=== PATIENT | male | born 1990 | race Caucasian/White ===

== ENCOUNTER 2019-01-29 06:03 | Emergency (ER) | payer BC ==
[2019-01-29 06:39] VITALS: BMI 26.5
[2019-01-29] MEDS ORDERED: SODIUM CHLORIDE 1,000 ML IV STA (07:12)
[2019-01-29] MEDS ORDERED: IBUPROFEN 600 MG TABLET (FP) PO ONE ×2 (07:12→07:23)
[2019-01-29] MEDS ORDERED: ONDANSETRON 4 MG/2 ML VIAL IVPB ONE (07:15)
[2019-01-29] MEDS ORDERED: ONDANSETRON 4 MG/2 ML VIAL ONE (07:23)
--- NOTE | 2019-01-29 07:23 | PDOC ---
History of Present Illness - General Chief Complaint: Headache Stated Complaint: HEADACHE Time Seen by Provider: 01/29/19 06:57 History Source: Patient Exam Limitations: No Limitations - History of Present Illness Initial Comments: 01/29/19 07:19 Pt is a previously healthy 29yo M presenting to ED with complaints of REAL, nausea and fever x3 days. Pt states he was helping his friend move Tuesday and later that evening/night developed a headache located in the temples associated with nausea. He went home and felt he had a fever of up to 103. He states the headache is better in the morning but gets worse through out the day. He states he vomited once yesterday but thought it was due to something he ate. He took Advil for the headache which helped a little. Endorses dark urine and low appetite. He denies vision changes, cough, congestion, sore throat, abdominal pain, urinary symptoms, back pain, neck stiffness, rashes, numbness/tingling, injury, sick contacts, recent travel. Lives at home with his and daughter. PMD: PMH: none PSH: none Meds: none Allergies: nkda Past History - Past Medical History Allergies/Adverse Reactions: Allergies Allergy/AdvReac Type Severity Reaction Status Date / Time No Known Allergies Allergy Verified 01/29/19 06:36 Home Medications: Ambulatory Orders NK [No Known Home Medication] 01/29/19 - Suicide/Smoking/Psychosocial Hx Smoking History: Never smoked Have you smoked in the past 12 months: No Information on smoking cessation initiated: No Hx Alcohol Use: No Drug/Substance Use Hx: No Review of Systems - Review of Systems Constitutional: Yes: Fever, Loss of Appetite, Weakness. No: Chills, Malaise, Night Sweats, Unexplained wgt Loss HEENTM: No: Eye Pain, Blurred Vision, Nose Congestion, Throat Pain Respiratory: No: Cough, Shortness of Breath Cardiac (ROS): No: Chest Pain, Lightheadedness, Palpitations ABD/GI: Yes: Nausea. No: Constipated, Diarrhea, Vomiting, Abdominal cramping : No: Burning, Dysuria, Flank Pain Musculoskeletal: No: Back Pain, Joint Pain, Muscle Pain, Neck Pain Integumentary: No: Dryness, Erythema, Lesions, Lumps Neurological: Yes: Headache. No: Numbness, Paresthesia, Tingling, Tremors, Weakness, Dizziness *Physical Exam - Vital Signs Last Vital Signs Temp Pulse Resp BP Pulse Ox 99.1 F 101 H 18 133/67 97 01/29/19 06:05 01/29/19 06:05 01/29/19 06:05 01/29/19 06:05 01/29/19 06:05 - Physical Exam General Appearance: Yes: Nourished, Appropriately Dressed. No: Apparent Distress HEENT: positive: EOMI, CARLO, Pharynx Normal, Other (dry oral mucosa). negative : Rhinorrhea Neck: negative: Lymphadenopathy (R), Lymphadenopathy (L) Respiratory/Chest: positive: Lungs Clear, Normal Breath Sounds. negative: Crackles, Rhonchi, Wheezing Cardiovascular: positive: Regular Rhythm, S1, S2, Tachycardia. negative: Edema Vascular Pulses: Carotid (R): 2+, Carotid (L): 2+, Dorsalis-Pedis (R): 2+, Doralis-Pedis (L): 2+ Gastrointestinal/Abdominal: positive: Normal Bowel Sounds, Soft. negative: Tender Musculoskeletal: negative: CVA Tenderness Extremity: positive: Normal Capillary Refill. negative: Pedal Edema Integumentary: positive: Normal Color, Dry, Warm. negative: Jaundice, Pale, Petechiae, Rash, Swelling Neurologic: positive: controller instructor II-XII NML intact, Fully Oriented, Alert, Normal Mood/ Affect, Normal Response, Motor Strength 5/5 ED Treatment Course - LABORATORY CBC & Chemistry Diagram: 01/29/19 07:45 01/29/19 09:10 Medical Decision Making - Medical Decision Making 01/29/19 07:23 Pt is a previously healthy 29yo M presenting to ED with complaints of REAL, nausea and fever x3 days. Pt states he was helping his friend move Tuesday and later that evening/night developed a headache located in the temples associated with nausea. He went home and felt he had a fever of up to 103. He states the headache is better in the morning but gets worse through out the day. He states he vomited once yesterday but thought it was due to something he ate. He took Advil for the headache which helped a little. Endorses dark urine and low appetite. He denies vision changes, cough, congestion, sore throat, abdominal pain, urinary symptoms, back pain, neck stiffness, rashes, numbness/tingling, injury, sick contacts, recent travel. Lives at home with his and daughter. Vitals: tachycardia 101 PE: Well appearing. dry mucous membranes. No neurological deficits, no joint swelling/stiffness, negative Brudzinsky, lungs cta, normal heart sounds/no rubs. DDx includes but not limited to dehydration, heat stroke/heat exhaustion, metabolic derrangements, malignancy, meningitis, viral illness, tension real Likely dehydration, will order cbc to check white count and cmp to monitor electrolytes. UA, UCX, CXR. Will hold off on Head CT given lack of neurological deficits. -IV fluids, ibuprofen, zofran Will reassess. Will try decadron if not improving. May need LP if WBC elevated or headache not improving. 01/29/19 08:24 Patient reports feeling better, headache is gone. Labs still pending. 01/29/19 09:49 No white count, urine has slight ketones. Chem hemolyzed, repeat sample sent. Pt has pmd at [facility]. Labs wnl. Pt feeling better. Safe for dc home. Given return precautions and neurology referral. PT understands and agrees to plan. Rpt vitals normal. *DC/Admit/Observation/Transfer Diagnosis at time of Disposition: Headache Qualifiers: Headache type: unspecified Headache chronicity pattern: acute headache Intractability: not intractable Qualified Code(s): R51 - Headache - Discharge Dispostion Disposition: HOME Condition at time of disposition: Improved Decision to Admit order: No - Referrals Referrals: Will Kennedy MD [Staff Physician] - - Patient Instructions Printed Discharge Instructions: DI for Headache Additional Instructions: You were seen in the emergency room today for headache. This could be due to dehydration. Keep yourself well hydrated, drink plenty of fluids and get rest. You can take ibuprofen or Advil for the headache as needed. Remember to make an appointment with your primary care doctor within the next 3 days or so. You can also see a neurologist if you continue to get headaches. Information is provided below. Please come back to the emergency room if headache gets worse, you continue to have headaches despite taking medications and drinking fluids, you start having vision changes, you start vomiting, fever continues or gets worse or if any new concerning symptom develops. Thank you - Post Discharge Activity
--- NOTE | 2019-01-29 07:29 | PDOC ---
Attending Attestation - Resident Resident Name: Rachel Franks - ED Attending Attestation I have performed the following: I have examined & evaluated the patient, The case was reviewed & discussed with the resident, I agree w/resident's findings & plan, Exceptions are as noted - HPI HPI: 01/29/19 07:43 Mr Nixon Bruno is a 29 yo M presenting to the ER with a complaint of fevers Pt reports that he was in his usual state of health until 4 days ago Pt states he was helping his friend move Tuesday, and was outside all day until 9 PM! Later that evening/night when he arrived home, he developed a headache. He then had another obligation the following day but was only out until 5pm When he got home, his took temp and noted fever of up to 103. she applied cool compresses He states he vomited once yesterday but thought it was due to something he ate. He has taken Advil for the headache. Decreased, dark urine Decreased appetite. He denies vision changes, cough, congestion, sore throat, abdominal pain, urinary symptoms, back pain, neck stiffness, rashes, numbness/tingling, injury, sick contacts, recent travel. 01/29/19 07:52 - Physicial Exam PE: 01/29/19 07:29 GENERAL: The patient is in no acute distress, diaphoretic. ENT: Ears normal, nares patent, oropharynx clear without exudates. Moist mucous membranes. No tonsillar enlargement, no exudates NECK: Normal range of motion, supple, no nuchal rigidity LUNGS: Breath sounds equal, No wheezes, ? crackles right base HEART:Regular rate and rhythm, normal S1 and S2 without murmur, rub or gallop. ABDOMEN: Soft, nontender, normoactive bowel sounds. EXTREMITIES: Normal range of motion, no edema. NEUROLOGICAL: Cranial nerves II through XII grossly intact. Normal speech. No focal neurological deficits. SKIN: Warm, Dry, normal turgor, no rashes or lesions noted. 01/29/19 07:51 - Medical Decision Making 01/29/19 07:51 29 yo M presenting with headaches and fevers HR 101, Temp 99.1 Pt diaphoretic, sheets on his stretcher are soaked DDx includes but not limited to dehydration, heat stroke/heat exhaustion, pneumonia, UTI, viral illness, tension de la fuente Meningitis unlikely given chronicity of symptoms and NO nuchal rigidity Will do: Labs UA CXR IVF Motrin Zofran 01/29/19 11:06 Laboratory Tests 01/29/19 01/29/19 01/29/19 07:45 08:14 09:10 WBC 6.9 Hgb 15.5 Hct 44.8 Plt Count 156 Neutrophils % 70.3 BUN 6.4 L Creatinine 0.7 Urine Blood Negative Urine Nitrite Negative Ur Leukocyte Esterase Negative CXR not officially read but does not appear to reflect an infiltrate Pt states he feels much better I have asked him to stay vigilant If fever returns he can take Tylenol and motrin in alternation He should return to the ER for any other concerns or complaints He should follow up with his PMD within 2-3 days Will discharge to home Most likely - viral syndrome vs. heat exhaustion
[2019-01-29 08:18] LABS: BASO % 0.5 % (0-2.0); EOS % 1.6 % (0-4.5); HEMATOCRIT 44.8 % (35.4-49); HEMOGLOBIN 15.5 GM/dL (11.7-16.9); LYMPH % 18.6 % (8-40); MCH 29.8 pg (25.7-33.7); MCHC 34.5 g/dl (32.0-35.9); MEAN CELL VOLUME 86.4 fl (80-96); MEAN PLT VOLUME 8.8 fl (7.5-11.1); NEUT % 70.3 % (42.8-82.8); PLATELET COUNT 156 K/MM3 (134-434); RBC 5.18 M/mm3 (4.00-5.60); RDW 14.2 % (11.9-15.9); WHITE BLOOD COUNT 6.9 K/mm3 (4.0-10.0)
[2019-01-29 08:59] LABS: URINE APPEARANCE CLEAR; URINE BILIRUBIN NEGATIVE (NEGATIVE); URINE COLOR YELLOW; URINE GLUCOSE (UA) NEGATIVE (NEGATIVE); URINE KETONE TRACE (NEGATIVE); URINE LEUK ESTERASE NEGATIVE (NEGATIVE); URINE NITRITE NEGATIVE (NEGATIVE); URINE PROTEIN NEGATIVE (NEGATIVE)
[2019-01-29 09:50] LABS: ALBUMIN 3.4 g/dl (3.4-5.0); BILIRUBIN,TOTAL 0.6 mg/dL (0.2-1); BLOOD UREA NITROGEN 6.4 mg/dL (7-18); CALCIUM 8.2 mg/dL (8.5-10.1); CREATININE 0.7 mg/dL (0.55-1.3); POTASSIUM 4.1 mmol/L (3.5-5.1); TOT PROT 6.9 g/dl (6.4-8.2)
[2019-01-29 10:05] VITALS: BP 101/57; PULSE 65; TEMP 98
== END 2019-01-29 10:20 | disposition home or self-care (01) ==
LOC: JER 06:03
PROC: 3E0337Z Introduction of Electrolytic and Water Balance Substance into Peripheral Vein, Percutaneous Approach (ICD-10-PCS; principal; 2019-01-29)
DX: B34.9 Viral infection, unspecified (principal); T67.5XXA Heat exhaustion, unspecified, initial encounter; X58.XXXA Exposure to other specified factors, initial encounter; Y93.89 Activity, other specified; Y92.89 Other specified places as the place of occurrence of the external cause; Y99.8 Other external cause status
CPT/HCPCS: 36415; 71046-TC-FY; 80053; 81003; 85025; 87086; 99282-25; J7030